=== PATIENT | male | born 1980 | race Two or more races ===

== ENCOUNTER 2020-06-28 10:40 | Emergency (ER) | payer OTHER ==
[~2020-06-28] VITALS: Ht 175.3 cm; Wt 79.4 kg
[2020-06-28] MEDS ORDERED: ANUSOL-HC25 MG RECTAL (16:47)
== END 2020-06-28 16:54 | disposition home or self-care (01) ==
LOC: ER 10:40
DX: K64.8 Other hemorrhoids (principal)